=== PATIENT | male | born 1995 | race African-American/Black ===

== ENCOUNTER 2020-12-08 18:42 | Emergency (ER) | payer BC ==
[~2020-12-08] VITALS: Ht 193 cm; Wt 81.8 kg
[~2020-12-08 18:42] MED LIST: CLEOCIN HC150 MG/CAP PO; FLEXERIL 1010 MG/TAB PO; NO HOME MEDICATIONS; NORCO 325 MG-51 TAB PO; ULTRAM 50MG TAB50 MG PO
[2020-12-08 19:36] VITALS: BP 123/78; PULSE 78; TEMP 97.9
== END 2020-12-08 19:36 | disposition home or self-care (01) ==
LOC: COL.ER 18:42
DX: S63.27 Dislocation of unspecified interphalangeal joint of finger (principal); W51.XXXA Accidental striking against or bumped into by another person, initial encounter; Y93.67 Activity, basketball